=== PATIENT | female | born 1945 | race Caucasian/White ===

== ENCOUNTER 2021-01-11 11:05 | Emergency (ER) | payer MEDICARE ==
[~2021-01-11 11:05] MED LIST: ALLOPURINOL 30300 MG PO; ASPIRIN EC81 MG PO; CELEBREX **OUT100 MG PO; CHLORTHALIDONE25 MG PO; COZAAR 25MG TAB25 MG PO; CURAMIN PO; METFORMIN HCL500 MG PO; PRILOSEC20 MG PO; SYNTHROID88 MCG PO; VITAMIN D31000 UNIT PO; ZOCOR40 MG PO
[2021-01-11 11:41] LABS: BASOPHIL 0.7 % (0-2); EOSINOPHIL 6.5 % (0-7); HCT 43.7 % (37.0-47.0); HGB 13.9 g/dl (12.5-16.0); LYMPHOCYTE 21.6 % (15-48); MCH 27.9 pg (25.0-31.0); MCHC 31.8 g/dL (32.0-36.0); MCV 87.8 fL (78.0-100.0); MONOCYTE 5.6 % (0-12); MPV 11.1 fL (6.0-9.5); NEUTROPHIL 65.2 % (41-80); NRBC 0; PLT 166 K/uL (150-400); RBC 4.98 M/uL (4.20-5.40); RDW 13.6 % (11.5-14.0); WBC 5.4 K/uL (4.0-10.5)
[2021-01-11 12:06] LABS: INR 0.98 (0.9-1.2); PROTHROMBIN TIME 12.4 SECONDS (11.8-13.4); PTT 25.5 SECONDS (24.4-34.7)
[2021-01-11 12:10] LABS: BILIRUBIN - TOTAL 0.4 mg/dL (0.2-1.0); BUN/CREAT RATIO (CALC) 26.2 RATIO; CREATININE 0.8 mg/dL (0.51-0.95); GLOBULIN (CALCULATION) 2.9 g/dL; POTASSIUM 4.1 mmol/L (3.5-5.1); TOTAL PROTEIN 6.9 g/dL (6.4-8.2)
[2021-01-11 15:12] LABS: CORONAVIRUS 2019 SARS-COV-2 NEGATIVE (NEGATIVE); INFLUENZA A NAA NEGATIVE (NEGATIVE)
== END 2021-01-11 18:45 | disposition home or self-care (01) ==
LOC: FER 11:05
PROVIDERS: Internal Medicine
DX: R07.89 Other chest pain (principal); K76.9 Liver disease, unspecified; E11.9 Type 2 diabetes mellitus without complications; J44.9 Chronic obstructive pulmonary disease, unspecified; Z88.5 Allergy status to narcotic agent; Z87.891 Personal history of nicotine dependence; Z20.822 Contact with and (suspected) exposure to COVID-19
CPT/HCPCS: 36415; 71045; 71275; 80053; 83690; 83880; 84484; 85025; 85610; 85730; 93005; 94640; 94664; J2930; J7030; U0002

== ENCOUNTER 2021-01-11 22:05 | Day surgery (SDCO) | payer MEDICARE ==
[~2021-01-11] VITALS: Ht 152.4 cm; Wt 80.3 kg
--- NOTE | 2021-01-12 16:02 | NUR ---
01/12/21 Ms. Barakat lives at [facility]. She voiced concerns re: her hospital bills. [employer] provided a financial application. Ms. Barakat's rent includes utilities and is income based. She receives foodstamps and is aware of [employer]. - Ms. Barakat is being transferred to [facility].
== END 2021-01-12 16:00 | disposition other institution (70) ==
LOC: FER 22:05 → FMS 22:43
PROVIDERS: ADMIT Internal Medicine
DX: I21.4 Non-ST elevation (NSTEMI) myocardial infarction (principal); I10 Essential (primary) hypertension; E11.9 Type 2 diabetes mellitus without complications; E03.9 Hypothyroidism, unspecified; Z79.82 Long term (current) use of aspirin; Z79.84 Long term (current) use of oral hypoglycemic drugs; Z79.899 Other long term (current) drug therapy; Z87.891 Personal history of nicotine dependence
CPT/HCPCS: 36415; 84484; 93005; 94010; G0378; J1650; J2270; J2405; J3490; J7030

== ENCOUNTER 2021-11-18 14:59 | Emergency (ER) | payer MEDICARE ==
[2021-11-18 15:17] LABS: BASOPHIL 0.4 % (0-2); EOSINOPHIL 3.5 % (0-7); HCT 41.1 % (37.0-47.0); HGB 12.9 g/dl (12.5-16.0); LYMPHOCYTE 14.3 % (15-48); MCH 26.4 pg (25.0-31.0); MCHC 31.4 g/dL (32.0-36.0); MONOCYTE 3.2 % (0-12); MPV 10.7 fL (6.0-9.5); NRBC 0; PLT 176 K/uL (150-400); RBC 4.89 M/uL (4.20-5.40); RDW 16.6 % (11.5-14.0); WBC 7.1 K/uL (4.0-10.5)
[2021-11-18 15:29] LABS: INR 1.01 (0.9-1.2); PTT 26.3 SECONDS (24.9-34.6)
[2021-11-18 15:41] LABS: ALBUMIN 3.8 g/dL (3.4-5.0); BILIRUBIN - TOTAL 0.3 mg/dL (0.2-1.0); BUN/CREAT RATIO (CALC) 23.1 RATIO; CREATININE 0.78 mg/dL (0.51-0.95); GLOBULIN (CALCULATION) 3.6 g/dL; POTASSIUM 3.9 mmol/L (3.5-5.1); TOTAL PROTEIN 7.4 g/dL (6.4-8.2)
== END 2021-11-18 22:30 | disposition other institution (70) ==
LOC: FER 14:59
PROVIDERS: Emergency Medicine
DX: I21.4 Non-ST elevation (NSTEMI) myocardial infarction (principal); I10 Essential (primary) hypertension; J44.9 Chronic obstructive pulmonary disease, unspecified; E11.9 Type 2 diabetes mellitus without complications; F17.210 Nicotine dependence, cigarettes, uncomplicated; Z79.84 Long term (current) use of oral hypoglycemic drugs; Z88.5 Allergy status to narcotic agent
CPT/HCPCS: 36415; 71045; 80053; 83880; 84484; 85025; 85610; 85730; 93005; 94640; J1644; J2270; J2405